=== PATIENT | female | born 1960 | race Caucasian/White ===

== ENCOUNTER 2018-08-02 05:46 | Inpatient (IN) ==
--- NOTE | 2018-07-13 13:46 | Anesthesiology Consultation ---
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 Was not found to have a. fib, cardiac vegetation/thrombus, or carotid stenosis at that time. Patient no longer follows with neuro or cardiology. Will be having a PCP clearance prior to surgery. Discussed case with Dr. Mesa, who did not feel that any further testing is needed at this point in time. Consults Requested medical (Dr. Arthur (07/16)) Patient was seen by Dr. Arthur on 07/16/18. Per PCP's note, patient is ok to proceed with surgery as long as CXR and EKG were ok, which they both were. Teaching & Discussion Pre-Anesthesia Teaching/Discussion Notes: Instructed NPO after midnight before surgery, except medications with 15 cc of water. Medication instructions provided according to the PAT guidelines. History Surgery Operation Date: 08/02/18 10:05 Proposed Procedures p C5 Corpectomy, C3-C6 Fusion, C3-C4 Anterior Cervical Discectomy and Fusion - Nehemiah Glaser, Height/Weight Height: 5 ft 6 in Weight: 101.2 kg Allergies Allergy/AdvReac Type Severity Reaction Status Date / Time simvastatin AdvReac Mild LEG CRAMPS Unverified 07/08/18 08:33 Medications Home Medications Medication Instructions Recorded Confirmed Last Taken Vitamin B-12 1 dose PO QAM 07/08/18 07/08/18 Unknown amitriptyline 50 mg PO HS 07/08/18 07/08/18 Unknown aspirin 81 mg PO QAM 07/08/18 07/08/18 Unknown atenolol 25 mg PO QAM 07/08/18 07/08/18 Unknown atorvastatin 10 mg PO PM 07/08/18 07/08/18 Unknown cholecalciferol (vitamin D3) 2 tab PO QAM 07/08/18 07/08/18 Unknown [Vitamin D3] clobetasol 1 applic TOPICAL UD 07/08/18 07/08/18 Unknown clonazepam 1.5 tab PO HS 07/08/18 07/08/18 Unknown duloxetine 40 mg PO QAM 07/08/18 07/08/18 Unknown fluticasone 2 spray INTRANASAL QAM 07/08/18 07/08/18 Unknown meclizine 25 mg PO TID PRN 07/08/18 07/08/18 Unknown sulindac 200 mg PO BID 07/08/18 07/08/18 Unknown triamterene-hydrochlorothiazid 1 tab PO QAM 07/08/18 07/08/18 Unknown Past Medical History Medical History Colitis Degenerative disc disease Fibromyalgia Hyperlipidemia Hypertension REM sleep behavior disorder Stroke 2015 - SENTHIL ALMODOVAR -PT UNSURE OF CAUSE - DOES NOT FOLLOW W/ NEURO - WORD FINDING ISSUES Past Surgical History Surgical History History of X 2 History of carpal tunnel release LEFT History of cholecystectomy History of colonoscopy x2 Past Anesthesia History No Hx of Anesthesia Complications and No Family Hx of Anesthesia Complications History of PONV No Motion Sickness Screening History of Motion Sickness: No STOP BANG Total 3 Social History Smoking Status: Never smoker Do You Dip or Chew Tobacco: No Hx Alcohol Use: Yes Alcohol type: beer and wine alcohol intake frequency: holidays/special occasions only Hx Substance Use: No substance use type: does not use Exercise / Class Metabolic Activity II 4-5 Yardwork/Stairs/Walk up hill (Works at a desk job. Able to climb FOS. Denies CP or SOB. ) Review of Systems Patient denies chest pain, shortness of breath, dyspnea on exertion, reflux, cough, wheezing, palpitations. +joint pain (hips, shoulders, neck) Physical Exam Vital Signs BP: 128/83 P: 76 R: 18 T: 97.8 SPO2: 96% on RA Constitutional + obese ENMT Thyromental Distance: > or= 3.5 Finger Breadths (3.5) Mallampati Class: II Neck normal visual inspection and trachea midline; neck extension not limited Respiratory normal respiratory effort Auscultation: lungs clear to auscultation bilaterally Cardiovascular Rate/Rhythm: regular rate and regular rhythm Heart Sounds: no murmur Vessels: no carotid bruit Neurologic moves all extremities Psychiatric Orientation: alert and oriented x 3 Testing Electrocardiogram Date: 07/13/18 Findings: + NSR @ (71) Chest X-Ray Date: 07/13/18 Findings: + NAD FINDINGS: The bones soft tissues and hemidiaphragms are normal. The cardiomediastinal silhouette is normal. The lungs are clear. The pulmonary vasculature is normal. IMPRESSION: Negative chest. Echocardiogram Date: 05/26/13 EF: 45-49% (mildly reduced) LV Function: normal Other Findings: + diastolic dysfunction (Grade I - mildly abnormal) There is diffuse mild hypokinesis. Mild aortic valve sclerosis is present. Other Testing CAROTID DUPLEX 05/26/13: Immediately before proceeding with the vascular lab procedure reported below, the identity of the patient, the correct exam and the correct procedural site were verified. Cleary scale and color flow Doppler imaging was performed for evaluation of the right carotid artery. Duplex examination of the right carotid artery identifies atherosclerotic plaque at the carotid bifurcation. The plaque is echogenic and appears to have irregular surface. Color Doppler imaging was performed for evaluation of the right carotid bifurcation. Spectral analysis of the right internal carotid artery demonstrates peak systolic velocities of .74 meters per second. Maximum end diastolic velocities are .23 meters per second. Peak right common carotid velocity 2 cm proximal to the bifurcation is .58 meters per second. The right internal carotid to common carotid ratio is 1.27. Cleary scale and color flow Doppler imaging was performed for the evaluation of the left carotid artery. Duplex examination of the left carotid artery identifies atherosclerotic plaque at the carotid bifurcation. The plaque is echogenic and appears to have irr egular surface. Color Doppler imaging was performed for the evaluation of the left carotid bifurcation. Spectral analysis of the left internal carotid artery demonstrates peak systolic velocities of .68 meters per second. Maximum end diastolic velocities are .27 meters per second. Peak left common carotid velocity 2 cm proximal to the bifurcation is .71 meters per second. The left internal carotid to common carotid ratio is .95. The right vertebral artery demonstrates antegrade flow. The left vertebral artery demonstrates antegrade flow. Impression: Right carotid artery duplex examination indicates evidence of <50% stenosis of the internal carotid artery. Left carotid artery duplex examination indicates evidence of <50% stenosis of the internal carotid artery. Laboratory Results 07/13/18 14:11 07/13/18 14:11 Blood Type O Positive 07/13/18 14:11 Antibody Screen NEGATIVE 07/13/18 14:11 PT 10.4 Seconds (9.0-12.0) 07/13/18 14:11 INR 1.0 (0.9-1.1) 07/13/18 14:11 APTT 26.2 Seconds (21.0-31.0) 07/13/18 14:11 Urine Color Yellow 07/13/18 Unknown Urine Appearance Clear (Clear) 07/13/18 Unknown Urine pH 6.5 (4.5-7.5) 07/13/18 Unknown Ur Specific Renick 1.010 (1.000-1.030) 07/13/18 Unknown Urine Protein Negative (Negative) 07/13/18 Unknown Urine Glucose (UA) Negative (Negative) 07/13/18 Unknown Urine Ketones Negative (Negative) 07/13/18 Unknown Urine Nitrite Negative (Negative) 07/13/18 Unknown Ur Leukocyte Esterase Negative (Negative) 07/13/18 Unknown 07/13/18 Unknown Urine Culture - Final Urine,Clean Catch Escherichia coli Dr. Glaser's office notified of UTI.
--- NOTE | 2018-07-13 13:57 | PAT Medication Instructions ---
Medication Instructions Date of Service July 13, 2018 Home Medications Vitamin B-12 1 dose PO QAM amitriptyline 50 mg PO HS aspirin 81 mg PO QAM atenolol 25 mg PO QAM atorvastatin 10 mg PO PM cholecalciferol (vitamin D3) 2 tab PO QAM clobetasol 1 applic TOPICAL UD clonazepam 1.5 tab PO HS duloxetine 40 mg PO QAM fluticasone 2 spray INTRANASAL QAM meclizine 25 mg PO TID PRN sulindac 200 mg PO BID triamterene-hydrochlorothiazid 1 tab PO QAM ASK your surgeon for instructions aspirin 81 mg PO QAM sulindac 200 mg PO BID - usually hold for 7 days prior to surgery STOP taking 24 hours before surgery clobetasol 1 applic TOPICAL UD DO NOT take the morning of surgery Vitamin B-12 1 dose PO QAM cholecalciferol (vitamin D3) 2 tab PO QAM fluticasone 2 spray INTRANASAL QAM meclizine 25 mg PO TID PRN triamterene-hydrochlorothiazid 1 tab PO QAM Take morning of surgery With a small sip of water, OTHERWISE NOTHING TO EAT OR DRINK AFTER MIDNIGHT: atenolol 25 mg PO QAM duloxetine 40 mg PO QAM Take evening before surgery amitriptyline 50 mg PO HS atorvastatin 10 mg PO PM clonazepam 1.5 tab PO HS meclizine 25 mg PO TID PRN Other Notes If you have any questions please call us at [phone] or [phone] or [phone] or [phone]
--- NOTE | 2018-07-13 14:47 | XRay Report ---
XR chest Pre-admission PA/Lat CLINICAL HISTORY: pat preoperative evaluation COMPARISON STUDY: No previous studies for comparison. FINDINGS: The bones soft tissues and hemidiaphragms are normal. The cardiomediastinal silhouette is n ormal. The lungs are clear. The pulmonary vasculature is normal. IMPRESSION: Negative chest. The above report was generated using voice recognition software. It may contain grammatical, syntax or spelling errors. Electronically signed by: Rolando Park M.D. 07/13/2018 2:45 PM
[2018-07-13 14:56] LABS: Basophils # (auto) 0.03 K/uL (0-0.2); Basophils % (auto) 0.3 %; Eosinophils # (auto) 0.22 K/uL (0-0.5); Eosinophils % (auto) 2.3 %; Hematocrit (blood only) 40.2 % (37-47); Hemoglobin 13.1 g/dL (12.0-16.0); Immature Granulocytes # (auto) 0.02 K/uL (0.00-0.02); Immature Granulocytes % (auto) 0.2 %; Lymphocytes # (auto) 2.47 K/uL (1.2-3.4); Lymphocytes % (auto) 25.7 %; Mean Corpuscular Hgb Conc 32.6 g/dL (32-36); Mean Corpuscular Volume 93.1 fL (80-100); Mean Platelet Volume 10.2 fL (7.4-10.4); Monocytes # (auto) 0.36 K/uL (0.11-0.59); Monocytes % (auto) 3.8 %; Neutrophils % (auto) 67.7 %; Platelet Count 269 K/uL (130-400); RDW Coefficient of Variation 15.1 % (11.5-14.5); RDW Standard Deviation 51.6 fL (36.4-46.3); Red Blood Count 4.32 M/uL (4.2-5.4)
[2018-07-13 15:06] LABS: Appearance Urine Clear (Clear); Bilirubin Urine Negative (Negative); Blood Urine Negative (Negative); Color Urine Yellow; Glucose Urine UA Negative (Negative); Ketones Urine Negative (Negative); Leukocyte Esterase Urine Negative (Negative); Nitrite Urine Negative (Negative); Protein Urine Negative (Negative); Urobilinogen Urine Negative (Negative); pH Urine 6.5 (4.5-7.5)
[2018-07-13 15:12] LABS: Partial Thromboplastin Time 26.2 Seconds (21.0-31.0); Prothrombin Time 10.4 Seconds (9.0-12.0)
[2018-07-13 16:03] LABS: BUN Creatinine Ratio 26.1 (10-20); Creatinine Clr Calc Pharmacy 93.2 ml/min; Est GFR (African American) 95.6; Est GFR (Non-African American) 82.5; Potassium 4.1 mmol/L (3.5-5.1)
[2018-08-02] MEDS ORDERED: ACETAMINOPHEN 500 MG TAB PO SCH (06:00)
[2018-08-02] MEDS ORDERED: CEFAZOLIN 2000MG 2,000 MG/15 ML SYR IV SCH (06:00)
[2018-08-02] MEDS ORDERED: GABAPENTIN 300 MG x 2 PO SCH (06:00)
[2018-08-02] MEDS ORDERED: CeleBREX 200 MG CAP PO SCH (06:00)
[2018-08-02] MEDS ORDERED: CEFAZOLIN 1000MG 1,000 MG/7.5 ML SYR IV SCH (06:00)
[2018-08-02] MEDS ORDERED: LR 15ML/HR IV SCH (06:00)
[2018-08-02] MEDS ORDERED: ROCURONIUM BROMIDE 10 MG/ML 5 ML VIAL ONE ×2 (06:36→09:15)
[2018-08-02] MEDS ORDERED: fentaNYL citrate 100 MCG/2 ML VIAL ONE (06:36)
[2018-08-02] MEDS ORDERED: LIDOCAINE HCL 2% 2 ML VIAL/AMP(20MG/ML) INFIL ONE (06:36)
[2018-08-02] MEDS ORDERED: PROPOFOL IV EMULSION 10 MG/ML 20 ML VIAL IV ONE (06:36)
[2018-08-02] MEDS ORDERED: DEXAMETHASONE SOD INJ 4 MG/ML VIAL ONE (06:36)
[2018-08-02] MEDS ORDERED: ONDANSETRON INJ 2 MG/ML 2 ML VIAL ONE (06:36)
[2018-08-02] MEDS ORDERED: MIDAZOLAM HCL 1 MG/ML 2ML VIAL ONE (06:36)
[2018-08-02] MEDS ORDERED: BACITRACIN INJ 50,000 UNIT VIAL ONE (06:51)
[2018-08-02] MEDS ORDERED: HYDROmorphone INJ 2 MG/ML SYR/VIAL IV PRN (07:25)
[2018-08-02] MEDS ORDERED: fentaNYL citrate 100 MCG/2 ML VIAL IV PRN (07:25)
[2018-08-02] MEDS ORDERED: PROMETHAZINE HCL 6.25 MG in SODIUM CHLORIDE 0.9% 50 ML IV PRN (07:25)
[2018-08-02] MEDS ORDERED: ONDANSETRON INJ 2 MG/ML 2 ML VIAL IV PRN ×2 (07:25→11:42)
[2018-08-02] MEDS ORDERED: ATROPINE SULFATE 0.1 MG/ML 10ML SYR IV PRN (07:25)
[2018-08-02] MEDS ORDERED: ePHEDrine sulfate 50 MG/ML AMP IV PRN (07:25)
--- NOTE | 2018-08-02 07:31 | History & Physical Bridge Note ---
Date of Service August 02, 2018 History & Physical Bridge Note I have examined the patient, reviewed the History & Physical and in the interval since the performance of the History & Physical I have noted the following changes of clinical significance: no changes noted
--- NOTE | 2018-08-02 07:32 | History & Physical Report ---
Date of Service August 02, 2018 Assessment & Plan (1) Cervical stenosis of spinal canal: C5 corpectomy C3-C6 fusion anterior cervical discectomy and fusion C3-4 Present on Admission?: Yes History of Present Illness Chief Complaint: Neck and arm pain Primary Care Provider: Setphanie Arthur DO This is a 58-year-old female who presents with chronic persistent neck and arm pain failing extensive course of nonoperative care she is here for surgical intervention. Allergies Allergy/AdvReac Type Severity Reaction Status Date / Time simvastatin AdvReac Mild LEG CRAMPS Verified 08/02/18 06:13 Home Medications Home Medications Medication Instructions Recorded Confirmed Type Vitamin B-12 1 dose PO QAM 07/08/18 08/02/18 History amitriptyline 50 mg PO HS 07/08/18 08/02/18 History aspirin 81 mg PO QAM 07/08/18 08/02/18 History atenolol 25 mg PO QAM 07/08/18 08/02/18 History atorvastatin 10 mg PO PM 07/08/18 08/02/18 History cholecalciferol (vitamin D3) 2 tab PO QAM 07/08/18 08/02/18 History [Vitamin D3] clobetasol 1 applic TOPICAL UD 07/08/18 08/02/18 History clonazepam 1.5 tab PO HS 07/08/18 08/02/18 History duloxetine 40 mg PO QAM 07/08/18 08/02/18 History fluticasone 2 spray INTRANASAL QAM 07/08/18 08/02/18 History meclizine 25 mg PO TID PRN 07/08/18 08/02/18 History sulindac 200 mg PO BID 07/08/18 08/02/18 History triamterene-hydrochlorothiazid 1 tab PO QAM 07/08/18 08/02/18 History Past Med/Surg History Social History Preferred Language: Romanian Communication Ability: Effective 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 Beliefs That Will Affect Care: None Current Living Situation: Spouse Other Information That Helps Us Care for You: No Feels Safe at Home: Yes Safety Concerns: Feels Safe At This Time Smoking Status: Never smoker Hx Alcohol Use: Yes Hx Substance Use: No Physical Exam Vital Signs (Past 24 Hours): Last Vital Signs Temp 36.8 C 08/02/18 06:17 Pulse 82 08/02/18 06:17 Resp 20 08/02/18 06:17 BP 163/89 H 08/02/18 06:17 Pulse Ox 96 08/02/18 06:17 Results & Data Medications Administered Acetaminophen (Tylenol) 1,000 mg PO PREOP GAIL Stop: 08/02/18 18:00 Last Admin: 08/02/18 06:46 Dose: 1,000 mg Documented by: [id number] Celecoxib (Celebrex) 200 mg PO PREOP GAIL Stop: 08/02/18 18:00 Last Admin: 08/02/18 06:46 Dose: 200 mg Documented by: [id number] Gabapentin (Neurontin) 600 mg PO PREOP GAIL Stop: 08/02/18 18:00 Last Admin: 08/02/18 06:46 Dose: 600 mg Documented by: [id number] Lactated Ringer's (Lr) 1,000 mls @ 15 mls/hr IV .Q24H GAIL Stop: 08/03/18 05:59 Last Admin: 08/02/18 06:31 Dose: 15 mls/hr Documented by: [id number]
[2018-08-02] MEDS ORDERED: HYDROmorphone INJ 2 MG/ML SYR/VIAL ONE (08:07)
[2018-08-02] MEDS ORDERED: ePHEDrine sulfate 50 MG/ML SYR ONE (08:40)
[2018-08-02] MEDS ORDERED: FLOSEAL HEMOSTATIC MATRIX 10ML TOP ONE (09:36)
--- NOTE | 2018-08-02 09:46 | Operative Report ---
Post Operative Report Pre & Post Diagnosis Operation Date: 08/02/18 07:45 Pre-Op Diagnosis: Cervical spinal stenosis with myeloradiculopathy Post-Op Diagnosis: Same Procedure Operation Date: 08/02/18 07:45 Actual Procedures #1 anterior cervical corpectomy C6. #2 anterior cervical discectomy C3-4. #3 anterior cervical arthrodesis C3-C4 and C4-C6. #4 placement of peek cage 25 mm in height at C4-C6. #5 placement of cortical allograft 7 mm in height at C3-4. #6 placement of locally harvested morselized autograft combined with DBM in the interbody cage. #7 application olson plate and screws from C3 to see 6. Surgeon Nehemiah Glaser, Clinical Social Work Therapist Shira Reddy Estimated Blood Loss 30 Findings Consistent with Post-Op Diagnosis Specimens None Description of Procedure Patient was met with preoperatively case discussed all questions addressed. After informed consent obtained patient was taken to the operative suite underwent intubation and placed in supine position Lino table and Link headholder. All bony prominences well-padded eyes inspected to ensure no external pressure placed upon. This point the anterior cervical spine was pre pped and draped in normal sterile fashion. With a longitudinal incision on the right anterior aspect of the cervical spine sharp dissection with the assistance of bipolar electrocautery was performed down to and exposing the anterior cervical spine from C3-C6. Self-retaining retractors placed. Then performed a complete discectomy of see 4 5 out to the uncovertebral joints bilaterally followed by C5-6. Cerro distracting pins were then placed in C4 and C6 to distract across the C5 vertebral body. A complete corpectomy was then performed including removal of all posterior annular fibers longitudinal ligament bilateral foraminotomies performed. Endplates were then burred to subcortical bleeding bone and a 25 mm peek cage filled with locally harvested morselized autograft and DBM tamped in position. I then proceeded to C3-4 and again complete discectomy performed up to the uncovertebral joints bilaterally. His pain removed all posterior annular fibers and performed bilateral forami notomies. Endplates were then burred to subcortical bleeding bone and a 7 mm cortical allograft filled with DBM tamped in position. All distraction apparatus was removed and a olson plate and screws applied with the assistance of fluoroscopy. The incision was then copious irrigated explored to ensure no damage to surrounding structures remaining bleeding. 15 round TATUM drain inserted. Incision was then closed with 2 Vicryl in the fascia and 4 Monocryl for final closure Steri-Strip sterile dressings placed. Patient will continue PACU stable history please note Shira Reddy present throughout the entire procedure involved in patient positioning complex portions of the surgery and final skin closure. I attest to the content of the Intraoperative Record and any orders documented therein. Any exceptions are noted below.
[2018-08-02] MEDS ORDERED: GLYCOPYRROLATE 0.2 MG/ML VIAL ONE (10:09)
[2018-08-02] MEDS ORDERED: NEOSTIGMINE METHYLSULFATE 5 MG/5 ML SYR ONE (10:09)
--- NOTE | 2018-08-02 10:32 | Fluoroscopy Report ---
Cervical SPINE, INTRAOPERATIVE FLUOROSCOPY HISTORY: C3-C6 ACDF. FLUOROSCOPY TIME: 10 seconds. FINDINGS: Intraoperative fluoroscopy was provided for the cervical spine. 3 fluoroscopic spot images were obtained. Anterior cervical discectomy and fusion from C3 through C6 with a C5 corpectomy and roshni ne graft. The hardware appears intact. IMPRESSION: Fluoroscopy provided for a C3-C6 ACDF. Electronically signed by: Timoteo Allen M.D. 08/02/2018 10:31 AM
--- NOTE | 2018-08-02 10:37 | Anesthesiology Progress Note ---
Date of Service August 02, 2018 Anesthesia Post Procedure Vital Signs Vital Signs: Temp Pulse Pulse Resp BP Pulse Ox 08/02/18 10:30 71 13 138/62 94 08/02/18 10:20 72 10 L 138/72 93 08/02/18 10:10 78 22 155/82 H 98 08/02/18 10:04 36.4 C L 75 10 L 150/86 H 87 L 08/02/18 06:17 36.8 C 82 20 163/89 H 96 Pain Intensity Lower Neck: Pain Intensity: 5 Notes Mental Status: alert / awake / arousable Patient Amnestic to Procedure: Yes Nausea / Vomiting: adequately controlled Pain: adequately controlled Airway Patency, RR, SpO2: stable & adequate BP & HR: stable & adequate Hydration State: stable & adequate Anesthetic Complications: no major complications apparent
[2018-08-02] MEDS ORDERED: HYDROmorphone INJ 0.5 MG/0.5 ML SYR IV PRN (11:42)
[2018-08-02] MEDS ORDERED: MAGNESIUM HYDROXIDE SUSP 30 ML UDC PO PRN (11:42)
[2018-08-02] MEDS ORDERED: DO NOT ADMINISTER PNEUMOCOCCAL VACCINE PRN (11:42)
[2018-08-02] MEDS ORDERED: DiphenhydrAMINE HCL 50 MG/ML VIAL IV PRN (11:42)
[2018-08-02] MEDS ORDERED: LORazepam 0.5 MG/1 ML VIAL IV PRN (11:42)
[2018-08-02] MEDS ORDERED: MECLIZINE HCL 25 MG TAB PO PRN (11:42)
[2018-08-02] MEDS ORDERED: DEXAMETHASONE SOD PHOSPHATE 8 MG in SYRINGE 0 ML IV PRN (11:42)
[2018-08-02] MEDS ORDERED: LORazepam 0.5 MG TAB PO PRN (11:42)
[2018-08-02] MEDS ORDERED: NALOXONE HCL 0.4 MG/1 ML VIAL/CARP IV PRN (11:42)
[2018-08-02] MEDS ORDERED: DO NOT ADMINISTER FLU VACCINE PRN (11:42)
[2018-08-02] MEDS ORDERED: RACEPINEPHRINE 2.25% NEBU SOLN 0.5 ML VIAL INH PRN (11:42)
[2018-08-02] MEDS ORDERED: SCOPOLAMINE 1.5 MG TDSY TD SCH (12:30)
[2018-08-02] MEDS: CEFAZOLIN 2000MG 2,000 MG/15 ML SYR IV SCH ×2 (14:17→22:13)
[2018-08-02] MEDS: SODIUM CHLORIDE 0.9% 1000ML 1,000 ML IV SCH (14:20)
[2018-08-02] MEDS: CHECK SCOPOLAMINE PATCH PLACEMENT SCH (16:52)
[2018-08-02] MEDS: SULINDAC 200 MG TAB PO SCH (17:58)
[2018-08-02] MEDS: OXYCODONE HCL IR 5 MG TAB (IMMEDIATE RELEASE) PO PRN (18:00)
[2018-08-02] MEDS ORDERED: COUGH DROP (SUGAR FREE) LOZ 24 LOZ/1 BOX BUCCAL ONE (19:04)
[2018-08-02] MEDS: DOCUSATE SODIUM 100 MG CAP PO SCH (20:38)
[2018-08-02] MEDS ORDERED: clonazePAM 0.5 MG TAB PO SCH (21:00)
[2018-08-02] MEDS ORDERED: ATORVASTATIN 10 MG TAB PO SCH (21:00)
[2018-08-02] MEDS ORDERED: AMITRIPTYLINE HCL 50 MG TAB PO SCH (21:00)
[2018-08-03] MEDS: CHECK SCOPOLAMINE PATCH PLACEMENT SCH ×2 (00:40→08:34)
[2018-08-03] MEDS: SODIUM CHLORIDE 0.9% 1000ML 1,000 ML IV SCH (02:24)
[2018-08-03] MEDS: CEFAZOLIN 2000MG 2,000 MG/15 ML SYR IV SCH (06:10)
--- NOTE | 2018-08-03 08:04 | Anesthesiology Progress Note ---
Date of Service August 03, 2018 Anesthesia Post Procedure Vital Signs Vital Signs: Temp Pulse Pulse Pulse Resp BP Pulse Ox 08/03/18 07:04 86 18 93 08/03/18 06:15 36.7 C 84 18 133/87 94 08/03/18 04:25 36.5 C 93 H 18 135/84 97 08/03/18 03:40 91 H 14 97 08/03/18 02:25 36.6 C 92 H 16 115/79 97 08/03/18 00:25 36.5 C 92 H 16 127/87 96 08/02/18 22:57 95 H 14 94 08/02/18 22:32 36.4 C L 95 H 16 104/74 95 08/02/18 20:35 36.6 C 98 H 16 104/78 94 08/02/18 19:59 112 H 16 96 08/02/18 19:00 08/02/18 18:29 37.2 C 102 H 18 147/80 H 96 08/02/18 16:25 36.7 C 98 H 18 106/82 95 08/02/18 15:35 98 H 16 97 08/02/18 14:25 92 H 12 124/79 95 08/02/18 13:25 36.4 C L 88 16 109/73 96 08/02/18 12:25 36.5 C 76 17 124/71 96 08/02/18 11:55 36.7 C 64 16 107/67 97 08/02/18 11:40 72 16 95 08/02/18 11:25 36.4 C L 73 20 118/76 94 08/02/18 11:10 36.0 C L 72 12 134/80 94 08/02/18 11:00 75 13 134/80 94 08/02/18 10:50 70 15 120/80 94 08/02/18 10:40 75 11 L 133/82 92 08/02/18 10:30 71 13 138/62 94 08/02/18 10:20 72 10 L 138/72 93 08/02/18 10:10 78 22 155/82 H 98 08/02/18 10:04 36.4 C L 75 10 L 150/86 H 87 L Pulse Ox 08/03/18 07:04 08/03/18 06:15 08/03/18 04:25 08/03/18 03:40 08/03/18 02:25 08/03/18 00:25 08/02/18 22:57 08/02/18 22:32 08/02/18 20:35 08/02/18 19:59 08/02/18 19:00 93 08/02/18 18:29 08/02/18 16:25 08/02/18 15:35 08/02/18 14:25 08/02/18 13:25 08/02/18 12:25 08/02/18 11:55 08/02/18 11:40 08/02/18 11:25 94 08/02/18 11:10 08/02/18 11:00 08/02/18 10:50 08/02/18 10:40 08/02/18 10:30 08/02/18 10:20 08/02/18 10:10 08/02/18 10:04 Pain Intensity Lower Neck: Pain Intensity: 5 Notes Mental Status: alert / awake / arousable Patient Amnestic to Procedure: Yes Nausea / Vomiting: adequately controlled Pain: adequately controlled Airway Patency, RR, SpO2: stable & adequate BP & HR: stable & adequate Hydration State: stable & adequate Anesthetic Complications: no major complications apparent and Pt Satisfied with anesthetic care
[2018-08-03] MEDS: SULINDAC 200 MG TAB PO SCH (08:36)
[2018-08-03] MEDS: DOCUSATE SODIUM 100 MG CAP PO SCH (08:39)
[2018-08-03] MEDS ORDERED: DULOXETINE HCL 20 MG CAP PO SCH (09:00)
[2018-08-03] MEDS ORDERED: ATENOLOL 25 MG TABLET PO SCH (09:00)
[2018-08-03] MEDS ORDERED: CHOLECALCIFEROL 1,000 UNITS TAB PO SCH (09:00)
[2018-08-03] MEDS ORDERED: FLUTICASONE PROPIONATE NA SPR 16 GM BTL SCH (09:00)
[2018-08-03] MEDS ORDERED: TRIAMTERENE/HCTZ 37.5/25MG TAB PO SCH (09:00)
--- NOTE | 2018-08-03 09:10 | Discharge Summary ---
Date of Service August 03, 2018 Admission HPI Per Admitting Provider This is a 58-year-old female who presents with chronic persistent neck and arm pain failing extensive course of nonoperative care she is here for surgical intervention. Principal Diagnosis Cervical spinal stenosis with myeloradiculopathy Discharge Data Allergies Allergy/AdvReac Type Severity Reaction Status Date / Time simvastatin AdvReac Mild LEG CRAMPS Verified 08/02/18 06:13 Procedures Performed Operation Date: 08/02/18 07:45 Actual Procedures p C5 Corpectomy, C3-C6 Fusion, C3-C4 Anterior Cervical Discectomy and Fusion(Not Applicable) - Nehemiah Glaser DO Ordered Studies 08/02/18 07:45 FL cervical 2-3V Routine FL fluoroscopy <1hr Routine Hospital Course (1) Cervical stenosis of spinal canal: Patient underwent anterior cervical decompression fusion tolerated as well as taken the orthopedic floor postoperative. Postop day 1 arm symptoms markedly improved. Swallowing well. No hoarseness. TATUM drain decreasing appropriately. Subsequently discharged home. Discharge orders and instructions found in the chart for further review. Total Time Total Time Spent Total Time Spent (In Minutes): Not applicable Discharge Plan Discharge Items Patient Disposition: Home - Self-Care Reason For Visit: CERVICAL SPINAL STENOSIS Discharge Diagnosis: Cervical spinal stenosis with myeloradiculopathy Discharge Goals: Decrease discomfort Activity: Per 'Additional Instructions' section Non-emergency contact: Primary Care Provider Call non-emergency contact if: you have any medication questions Follow-up/Referrals: Stephanie Arthur DO [Primary Care Provider] - Diet: Regular Addtl Provider Instructions: ACTIVITY RECOMMENDATIONS: SELF CARE INSTRUCTIONS AFTER CERVICAL FUSIONS 1. No smoking. Smoking drastically decreases the chance of a solid fusion. 2. No bending, lifting more than 5 pounds, or twisting (roll like a log when turning in bed). 3. You may shower 3 days after surgery. Thoroughly dry wound. Do not soak in the tub. 4. Cervical collar: Must be worn at all times including sleeping. You may remove the brace only to bath, eat and if you are sitting in a recliner. 5. Please walk as much as you can for exercise. Gradually increase the distance that you walk as your endurance increases. SPECIAL CARE INSTRUCTIONS: VERY IMPORTANT TO READ AND REVIEW A. Do not take any anti-inflammatory medications (i.e. Indocin, Advil, Aspirin, Naprosyn, Aleve, Motrin, etc.) as these may inhibit the chance of a solid fusion. Tylenol is okay to take. B. Your surgical incision has been closed with a cosmetic suture under the skin that will dissolve in about 6 weeks. In 14 days, you can use a pair of clean scissors and cut the suture that is left outside of the skin at the ends of your incision. C. Complications are uncommon, but please contact us if you have any signs or symptoms of: 1. wound infection (fever higher than 102.5 degrees F, redness, separation of wound, drainage, or increasing pain from the incision) 2. blood clots in legs (pain, swelling, redness and warmth in legs) 3. urinary tract infection (fever higher than 102.5 degrees, burning upon urination or increased frequency of urination) 4. nerve problems (inability to walk on your toes or heels, numbness, loss of bowel or bladder control) 5. any other symptoms that concern you. D. Please call the office at if you have any concerns or questions about your operation or recovery. MANAGING PAIN AFTER SPINAL SURGERY 1. Narcotic medication is intended for short-term use and will be provided for surgical pain. Surgical pain usually lasts for a period of 4-6 weeks. Narcotic medication includes Percocet, Vicodin, Darvocet, Tylenol #3 or Lortab. 2. Longer-term pain is more appropriately treated with non-narcotic medication such as Tylenol ES. 3. Muscle spasm is not appropriately treated with narcotics. Muscle relaxers such as Soma, Flexeril or Skelaxin can be used along with Tylenol ES. 4. Remember that we all live with some "aches and pains". This is not unusual or uncommon after an injury or as we get older. 5. We will provide appropriate medication within the normal guidelines of their prescribed use. We will also be very cautious and aware of potential abuse and extended duration of patients' medication needs. 6. Please allow 2-3 days to process refills. Prescriptions will not be mailed but must be picked up at the office. FOLLOW UP VISIT: Keep your scheduled follow-up appointment. Any questions, please call the office at . Prescriptions: New oxycodone 5 mg Tablet 5 mg PO Q4H PRN (Reason: Pain) Qty: 20 RF: 0 Continued atorvastatin 10 mg Tablet 10 mg PO PM RF: 0 clonazepam 0.5 mg Tablet 1.5 tab PO HS RF: 0 atenolol 25 mg Tablet 25 mg PO QAM RF: 0 clobetasol 0.05 % Cream 1 applic TOPICAL UD RF: 0 aspirin 81 mg Tablet,Delayed Release (Dr/Ec) 81 mg PO QAM RF: 0 amitriptyline 50 mg Tablet 50 mg PO HS RF: 0 meclizine 25 mg Tablet 25 mg PO TID PRN (Reason: Dizziness) RF: 0 triamterene-hydrochlorothiazid 37.5-25 mg Tablet 1 tab PO QAM RF: 0 fluticasone propionate 50 mcg/actuation [place],Suspension 2 spray INTRANASAL QAM RF: 0 sulindac 200 mg Tablet 200 mg PO BID RF: 0 duloxetine 20 mg Capsule,Delayed Release(Dr/Ec) 40 mg PO QAM RF: 0 cholecalciferol (vitamin D3) [Vitamin D3] 1,000 unit Tablet 2 tab PO QAM RF: 0 Vitamin B-12 1 dose PO QAM RF: 0 Stand-Alone Forms: [facility] Discharge Orders: Discharge Order (Routine); Ordered 08/03/18 Ordered By: Nehemiah Glaser Admission Data Admit Date/Time: 08/02/18 09:51 Attending Provider: Nehemiah Glaser Admit Provider: Nehemiah Glaser Primary Care Provider: Stephanie Arthur Service: Surgical Services
[2018-08-03] MEDS: OXYCODONE HCL IR 5 MG TAB (IMMEDIATE RELEASE) PO PRN (13:39)
[2018-08-04] MEDS ORDERED: BISACODYL 5 MG TABEC PO PRN (09:49)
[2018-08-04] MEDS ORDERED: POLYETHYLENE (MIRALAX) 17 GM PACK PO PRN (09:49)
== END 2018-08-03 13:56 | disposition home or self-care (01) | DRG 473 ==
LOC: ASU 05:46 → 3E 09:51